=== PATIENT | female | born 1945 | race Caucasian/White ===

== ENCOUNTER 2018-03-29 06:11 | Day surgery (SDC) | payer MEDICARE, BC ==
[2018-03-29] MEDS ORDERED: Propofol 10 mg/ml Inj (20 ML) ONE (07:50)
[2018-03-29] MEDS ORDERED: Lidocaine Hydrochloride 5 ML INJ ONE (07:50)
[2018-03-29] MEDS ORDERED: ePHEDrine 50 mg/ml Inj ONE (07:51)
[2018-03-29] MEDS ORDERED: Lactated Ringer's 500 ML IV ONE (07:52)
--- NOTE | 2018-03-29 07:59 | CP.SDSHP ---
Same Day Surgery H & P - History Proposed Procedure: colonscopy Pre-Op Diagnosis: screening with previous poor prep - Previous Medical/Surgical History Cardiac: Hypertension Endocrine/Metabolic: Obesity Misc: Other (diverticulosis, ) Previous Surgical History: carpal tunnel release. knee arthroscopy - Allergies Allergies: Allergies No Known Allergies Allergy (Verified 03/28/18 11:06) - Physical Exam Vital Signs: Vital Signs 03/29/18 06:38 Temperature 97.4 F L Pulse Rate 77 Respiratory 19 Rate Blood Pressure 134/70 O2 Sat by Pulse 98 Oximetry Mental Status: Alert & Oriented x3 Neuro: WNL Heart: WNL Lungs: WNL GI: WNL - Impression Impression: screening for colon cancer with prior poor prep Pt. Evaluated Today:Candidate for Anesthesia & Procedure: Yes - Date & Time Date: 03/29/18 Time: 07:59 Short Stay Discharge - Short Stay Discharge Admitting Diagnosis/Reason for Visit: ENCOUNTER F0R SCREENING Disposition: HOME/ ROUTINE
[2018-03-29 08:34] VITALS: TEMP 97; O2SAT 100
[2018-03-29 08:59] VITALS: BP 107/65; PULSE 60; RESP 14
== END 2018-03-29 09:45 | disposition home or self-care (01) ==
LOC: C.ENDO 06:11
PROVIDERS: ATTEND Internal Medicine Gastroenterology
DX: D12.3 Benign neoplasm of transverse colon (principal); K64.8 Other hemorrhoids; K57.90 Diverticulosis of intestine, part unspecified, without perforation or abscess without bleeding
CPT/HCPCS: 45385; 88305; J2704; J7120